=== PATIENT | male | born 1985 | race Caucasian/White ===

== ENCOUNTER 2016-09-23 20:31 | Emergency (ER) | payer OTHER ==
[~2016-09-23] VITALS: Ht 175.3 cm; Wt 93.2 kg
[2016-09-23 20:37] VITALS: BP 141/90; PULSE 66; RESP 16; O2SAT 98
[2016-09-23 21:12] LABS: BASOPHILS % (AUTO) 0.3 % (0-3); EOSINOPHILS % (AUTO) 0.7 % (0-5); MONOCYTES % (AUTO) 11.3 % (4-12); Mean Corpuscular Hemoglobin 29.4 pg (27.0-35.0); Mean Corpuscular Volume 83.8 fL (81-100); NEUTROPHILS % (AUTO) 55.6 % (40-74); Platelet Count 195 bil/L (150-400)
[2016-09-23 21:34] LABS: Magnesium 1.8 mg/dL (1.6-2.6)
--- NOTE | 2016-09-23 22:27 | ED.REPORT ---
HPI- Male Date of Service Sep 23, 2016 ED Provider: MD Mirza This is a 31 year old male presenting to the emergency department complaining of dysuria that began 2 days ago. Reports burning and painful sensation while urinating. Also reports a lump in the L inguinal area. Denies penile discharge, testicular pain, fever, chills, abdominal pain, nausea, or vomiting. Nursing Notes Stated Complaint: LUMP AND PAIN IN THE GROIN Chief Complaint: Male Abdominal Pain Nursing Notes Reviewed: Yes Allergies: Coded Allergies: No Known Allergies (Unverified , 09/23/16) General Time Seen by MD: 22:27 Chief Complaint Abdominal pain... Hx Obtained From: Patient Arrived By: Walk-in Onset Occurred: Just prior to arrival Symptom Duration: Since onset Severity: Current: Moderate Pertinent Negative: Pt denies other symptoms Recent Healthcare: No recent doctor visit, No recent hospitalization Similar Sx Previous: No Past Medical History Past Medical History Denies Past Surgical History Denies Ambulatory Status Independent Review of Systems Constitutional: Denies: Chills, Fever GI: Denies: Abdominal pain, Constipation, Diarrhea, Nausea, Vomiting Male: Reports Dysuria, Denies Flank pain, Denies Penile discharge, Denies Scrotal swelling, Denies Testicular pain Musculoskeletal: Denies: Extremity pain Complete sys rev & neg: except as marked. Physical Exam Initial Vital Signs Vital Signs (First) Date Time Temp Pulse Resp B/P Pulse Ox O2 Delivery O2 Flow Rate FiO2 09/23/16 20:37 36.9 66 16 141/90 98 Room Air Initial VS: Reviewed General/Constitutional: Well-developed, Well-nourished Head / Eyes: Atraumatic, Normocephalic, PERRL ENT: Mucous membranes moist, Conjunctiva normal, No scleral icterus Neck: Supple, Non-tender, Full range of motion Respiratory: Breath sounds normal, Clear to auscultation, No respiratory distress Cardiovascular: Regular rate & rhythm, Heart sounds normal, Intact distal pulses Abdomen / GI: Soft, Non-tender, No guarding, No rebound, No distention Extremities: Vascular intact, Neuro intact, No swelling, No tenderness Skin: Warm, Dry, No cyanosis Neurologic: Alert, Oriented, Nonfocal Psychiatric: Mood/affect normal, Behavior normal, Normal thought content Male Genitourinary: Penis NL Small, slightly tender lymph node in L inguinal canal. Small amount of erythema in the distal urethra, no penile discharge. Normal circumcised male genitalia with no testicular swelling or tendneress. Interpretation & Diagnostics Lab Results Interpretation Result Diagram: 09/23/16210109/23/162101 Test 09/23/16 20:41 09/23/16 21:02 09/23/16 22:30 White Blood Count 7.5th/mm3 (3.8-10.1) Red Blood Count 5.11mil/mm3 (4.40-5.80) Hemoglobin 15.0g/dL (13.8-17.2) Hematocrit 42.8% (41.0-50.0) Mean Corpuscular Volume 83.8fL (81-100) Mean Corpuscular Hemoglobin 29.4pg (27.0-35.0) Mean Corpuscular Hemoglobin Concent 35.0% (32.0-37.0) Red Cell Distribution Width 12.3% (12.3-15.4) Platelet Count 195bil/L (150-400) Neutrophils (%) (Auto) 55.6% (40-74) Lymphocytes (%) (Auto) 32.0% (14-46) Monocytes (%) (Auto) 11.3% (4-12) Eosinophils (%) (Auto) 0.7% (0-5) Basophils (%) (Auto) 0.3% (0-3) Sodium Level 140mEq/L (134-144) Potassium Level 3.9mEq/L (3.5-5.2) Chloride Level 99mEq/L (97-108) Carbon Dioxide Level 26mmol/L (18-29) Blood Urea Nitrogen 17mg/dL (6-20) Creatinine 0.97mg/dL (0.76-1.27) Estimat Glomerular Filtration Rate 97mL/min (>59) Glucose Level 128mg/dL (60-99) Calcium Level 9.3mg/dL (8.5-10.1) Magnesium Level 1.8mg/dL (1.6-2.6) Total Bilirubin 0.2mg/dL (0.0-1.2) Aspartate Amino Transf (AST/SGOT) 22U/L (0-50) Alanine Aminotransferase (ALT/SGPT) 22U/L (0-44) Alkaline Phosphatase 41U/L (25-150) Total Protein 6.9g/dL (6.4-8.4) Albumin 4.5g/dL (3.4-5.0) Lipase 39U/L (13-60) Hold John Top Tube Received (Received) Urine Color Yellow (YELLOW) Urine Appearance Clear (CLEAR,HAZY) Urine pH 6.0 (5.0-8.0) Urine Specific [place] 1.030 (1.003-1.035) Urine Protein Negativemg/dL (NEG,TRACE) Urine Glucose (UA) Negativemg/dL (NEGATIVE) Urine Ketones Negativemg/dL (NEGATIVE) Urine Occult Blood Negative (NEGATIVE) Urine Nitrite Negative (NEGATIVE) Urine Bilirubin Negative (NEGATIVE) Urine Urobilinogen Normalmg/dL (NORMAL) Urine Leukocyte Esterase Negative (NEGATIVE) Urine RBC 3-10/hpf (0-2) Urine WBC 0-5/hpf (0-5) Urine Epithelial Cells Few/hpf (NONE-MOD) Urine Crystals None seen (NONE SEEN) Urine Bacteria Few/hpf (NONE-FEW) Urine Hyaline Casts None/lpf (NONE) Urine Granular Casts None seen (NONE SEEN) Urine Waxy Casts None seen (NONE SEEN) Urine Red Blood Cell Casts None seen (NONE SEEN) Urine White Blood Cell Casts None seen (NONE SEEN) Urine Mucus Present (None Seen) Urine Trichomonas None seen (NONE SEEN) Urine Yeast None (NONE SEEN) Urinalysis Comment None Urine Culture Reflexed Not indicated Re-Eval/Medical Decision Med Decision/Clinical Course 31-year-old male with no past medical history here with dysuria and palpable lump in his left groin. Differential diagnosis includes but is not limited to urinary tract infection versus gonorrhea versus chlamydia versus other sexually transmitted infection. Patient has normal urinalysis aside from some red blood cells. I am treating him presumptively for gonorrhea and chlamydia with Rocephin and azithromycin. I have given him precautions not to engage in sexual contact until he is cleared. I have sent his urine for GC/CT cultures. He is amenable to discharge and has been given very strict return precautions Re-Evaluation/Progress : Time of Eval: 22:59 Re-Evaluation/Progress Note: plan for d/c, all questions addressed Counseled Regarding: Diagnosis, Lab results, Need for follow-up, When/why to return to ED Discharge & Departure Impression: Primary Impression: Dysuria Disposition: Home Discharge Condition All VS Reviewed: Yes Condition: Stable Additional Instructions: Take the medications as prescribed. Avoid engaging in sexual contact until cleared. You can call back on Friday for the lab results. Follow-up with your primary care provider. Return to the emergency department for any new or worsening symptoms Referrals: [facility] Scribe Attestation Portions of this note were transcribed by Cortez Armenta. I, Dr. Blue personally performed the history, physical exam and medical decision-making; I reviewed and confirmed the accuracy of the information in the transcribed note. Signed by: samson Cheema. 09/23/2016, 23:00. Jamilah Blue MD Sep 23, 2016 22:27 CORTEZ ARMENTA Sep 23, 2016 22:29
[2016-09-23 22:46] LABS: APPEARANCE,URINE CLEAR (CLEAR,HAZY); COLOR,URINE YELLOW (YELLOW); OCCULT BLOOD,URINE NEGATIVE (NEGATIVE); UROBILINOGEN,URINE NORMAL (NORMAL)
[2016-09-23] MEDS ORDERED: cefTRIAXone Inj 1,000 MG, Lidocaine PF 1% Inj 2.1 ML in Syringe 0 EACH IM ONE (22:55)
[2016-09-23 23:29] VITALS: BP 142/72; PULSE 64; O2SAT 96
== END 2016-09-23 23:30 | disposition home or self-care (01) ==
LOC: SED 20:31
DX: R30.0 Dysuria (principal); R19.09 Other intra-abdominal and pelvic swelling, mass and lump
CPT/HCPCS: 36415; 80053; 81000; 83690; 83735; 85025; 87491; 87591; 96372; 99284; J0696